=== PATIENT | female | born 1945 | race Two or more races ===

== ENCOUNTER → 2016-05-09 | Outpatient (CLI) | payer MEDICARE, OTHER ==
--- NOTE | 2016-05-10 02:17 | HKNOTE ---
DATE OF SERVICE: 05/09/2016 Patient continues to complain of pain in her right knee. The cortisone injections into her right kn ee have not given her any relief. Patient comes in with her , indicating that she wishes to proceed with a right knee replaceme nt. The surgery and some of the major possible complications were discussed with the two of them. The patient was given my manual titled "Arthritis of the Knee Joint" which contains information conc erning the various alternatives of treatment. It includes various forms of conservative treatment, i ncluding the use of nonsteroidal anti-inflammatory medications and their dangers. Various surgical a lternatives are discussed. The technique of total knee replacement is discussed in detail, including possible complications. Included also is a section on the possible complications of blood transfusi on, a section on postoperative precautions, and an exercise program to follow at home after total kn ee replacement. The long-term care of a total knee replacement implant is also covered in detail. Th e patient was instructed to read this manual in its entirety since it is, in and of itself, a form o f informed consent. After reading this manual, the patient will make a list of further questions shai t may not have been covered adequately. The patient was further advised that this manual, although e xhaustive in nature, is only intended to supplement and complement a one-on-one discussion with me. The patient will see Dr. Payne for medical evaluation and clearance, and my hair or beauty salon assistant will sc hedule her surgery in the near future. Dictated By: PREET HUDDLESTON/KASSANDRA Conf#: [id number] DID#: [id number]
== END | disposition home or self-care (01) ==
LOC: HKI 13:50
DX: M25.561 Pain in right knee (principal)
CPT/HCPCS: G0463

== ENCOUNTER → 2016-05-29 | Outpatient (CLI) | payer MEDICARE, OTHER ==
[~2016-05-29] MED LIST: CARV12.579 PO; CHOL20002 PO; CITA20SO PO; EZET10TA3 PO; GABA100C14 PO; LEVO25TA59 PO; LIDOCAINE PATCH; METF-405 PO; MONT10TA21 PO; MONT10TA24 PO; RIVA20TA PO; SPIR50TA PO; TRAM50TA2 PO; VIMOVO DR
--- NOTE | 2016-05-29 17:58 | HKNOTE ---
DATE OF SERVICE: 05/29/2016 The patient had preoperative evaluation. She is scheduled to have right total knee replacement on 0 05/30/2016, has been cleared for surgery by Dr. Saqib Rosenbaum. Numerous questions were asked and answ ered. The patient really did not have too many questions since her has already had 2 knee r eplacements. She has not given any blood for autotransfusion. She understands the risks associated with using hospital blood. She is agreeable to using hospital blood if needed. Dictated By: PREET HUDDLESTON/KASSANDRA Conf#: [id number] DID#: [id number]
== END | disposition home or self-care (01) ==
LOC: HKI 13:19
DX: Z01.818 Encounter for other preprocedural examination (principal)
CPT/HCPCS: G0463

== ENCOUNTER 2016-05-30 05:46 | Inpatient (IN) | payer MEDICARE, OTHER ==
[2016-05-29 11:04] VITALS: BMI 31.7
[2016-05-30] VITALS (52 sets, daily range): BP systolic 64–145; BP diastolic 45–91; PULSE 60–100; RESP 12–30; Ht 162.6 cm; Wt 98.3 kg
[~2016-05-30] VITALS: Ht 162.6 cm; Wt 98.3 kg
[2016-05-30] MEDS ORDERED: SOD CHLORIDE 0.9% IRR SCH ×2 (06:00)
[2016-05-30] MEDS ORDERED: ONDANSETRON 4 MG INJ IV ONE (06:00)
[2016-05-30] MEDS ORDERED: DEXAMETHASONE 4 MG/ML 1 ML INJ IV ONE (06:00)
[2016-05-30] MEDS ORDERED: ACETAMINOPHEN 1000MG/100ML IV 100 ML IVPB ONE (06:00)
[2016-05-30] MEDS ORDERED: CELECOXIB 200 MG CAP PO ONE (06:00)
[2016-05-30] MEDS: KNEE PAIN COCKTAIL VANCO INJ SCH ×12 (06:00→08:46)
[2016-05-30] MEDS ORDERED: LACTATED RINGER'S 1,000 ML IV* SCH (06:00)
[2016-05-30] MEDS ORDERED: TRANEXAMIC ACID IRR SCH ×2 (06:00)
[2016-05-30] MEDS ORDERED: VANCOMYCIN 1 GM (PMX) 250 ML IVPB ONE (06:00)
[2016-05-30] MEDS ORDERED: SOD CHLORIDE 0.9% IVPB ONE (06:00)
[2016-05-30] MEDS ORDERED: oxyCODONE (CR) 10 MG TAB [oxyCONTIN] PO ONE (06:00)
[2016-05-30] MEDS ORDERED: LANSOPRAZOLE 30 MG CAP PO ONE (06:00)
[2016-05-30] MEDS ORDERED: TRANEXAMIC ACID IVPB ONE (06:00)
[2016-05-30] MEDS ORDERED: MIDAZOLAM 1 MG/ML 2 ML INJ ONE ×2 (06:09→09:24)
[2016-05-30] MEDS ORDERED: ROCURONIUM 50 MG INJ ONE (06:09)
[2016-05-30] MEDS ORDERED: GLYCOPYRROLATE 0.4 MG INJ ONE (06:09)
[2016-05-30] MEDS ORDERED: LIDOCAINE 2% (SDV) 5 ML INJ ONE (06:09)
[2016-05-30] MEDS ORDERED: PROPOFOL 20 ML ONE (06:09)
[2016-05-30] MEDS ORDERED: FENTAnyl 50 MCG/ML VIAL ONE (06:09)
[2016-05-30] MEDS ORDERED: NEOSTIGMINE 3 MG/3 ML SYRINGE ONE (06:09)
[2016-05-30] MEDS ORDERED: LIDOCAINE 2%/EPI 30 ML INJ ONE (06:10)
[2016-05-30] MEDS ORDERED: DEXAMETHASONE 4 MG/ML 1 ML INJ ONE (06:10)
[2016-05-30] MEDS ORDERED: ONDANSETRON 4 MG INJ ONE (06:11)
[2016-05-30] MEDS ORDERED: TRAM50TA2 PO (06:16)
[2016-05-30] MEDS ORDERED: CITA20SO PO (06:16)
[2016-05-30] MEDS ORDERED: RIVA20TA PO (06:16)
[2016-05-30] MEDS ORDERED: MONT10TA24 PO (06:16)
[2016-05-30] MEDS ORDERED: METF-405 PO (06:16)
[2016-05-30] MEDS ORDERED: CHOL20002 PO (06:16)
[2016-05-30] MEDS ORDERED: LIDOCAINE PATCH (06:16)
[2016-05-30] MEDS ORDERED: EZET10TA3 PO (06:16)
[2016-05-30] MEDS ORDERED: SPIR50TA PO (06:16)
[2016-05-30] MEDS ORDERED: GABA100C14 PO (06:16)
[2016-05-30] MEDS ORDERED: VIMOVO DR (06:16)
[2016-05-30] MEDS ORDERED: MONT10TA21 PO (06:16)
[2016-05-30] MEDS ORDERED: CARV12.579 PO (06:16)
[2016-05-30] MEDS ORDERED: LEVO25TA59 PO (06:16)
[2016-05-30] MEDS ORDERED: MIDAZOLAM 1 MG/ML 2 ML INJ IV PRN (06:30)
[2016-05-30] MEDS ORDERED: HYDROmorphONE (0.2 MG/ML) 10ML SYG IV PRN ×3 (06:30)
[2016-05-30] MEDS ORDERED: EPHEDrine SULFATE 50 MG/5 ML SYG IV PRN (06:30)
[2016-05-30] MEDS ORDERED: ONDANSETRON 4 MG INJ IV PRN (06:30)
[2016-05-30] MEDS ORDERED: OXYCODONE/ACETAMINOPHEN (5/325) TAB PO PRN ×2 (06:30)
[2016-05-30] MEDS ORDERED: LABETALOL HCL 20MG INJ IV PRN (06:30)
[2016-05-30] MEDS ORDERED: ATROPINE 1 MG/10 ML SYRINGE IV PRN (06:30)
[2016-05-30] MEDS ORDERED: hydrALAzine 20 MG INJ IV PRN (06:30)
[2016-05-30] MEDS ORDERED: morphine (1 MG/ML) 10ML SYRINGE IV PRN ×3 (06:30)
[2016-05-30] MEDS ORDERED: MEPERIDINE 25 MG INJ IV PRN (06:30)
[2016-05-30] MEDS ORDERED: FENTAnyl 50 MCG/ML VIAL IV PRN ×2 (06:30)
[2016-05-30] MEDS ORDERED: DIPHENHYDRAMINE 50 MG INJ IV PRN (06:30)
[2016-05-30] MEDS ORDERED: ROPIVACAINE 0.2% 100 ML ONE (06:50)
[2016-05-30] MEDS ORDERED: VANCOMYCIN 1 GM INJ ONE (06:50)
[2016-05-30] MEDS ORDERED: POLYMYXIN B 500000 UNIT INJ ONE (06:50)
[2016-05-30] MEDS ORDERED: BUPIVACAINE 0.25%/EPI (SDV) 30 ML INJ ONE (06:50)
[2016-05-30] MEDS ORDERED: TOBRAMYCIN 1.2 GM POWDER ONE ×2 (06:50→10:30)
[2016-05-30] MEDS ORDERED: METHYLENE BLUE 10 MG/ML VIAL ONE (06:50)
--- NOTE | 2016-05-30 06:52 | HPN ---
Date/Time of Note Date/Time of Note DATE: 05/30/16 TIME: 06:51 Interval H&P Admission Note Pt. seen H&P reviewed: No system changes TABBY EARLY PA-C May 30, 2016 06:51
[2016-05-30] MEDS ORDERED: SUCCINYLCHOLINE CHLORIDE 100 MG/5 ML SYG IV ONE (07:00)
[2016-05-30] MEDS ORDERED: BACITRACIN 50000 UNITS INJ IRR ONE (08:46)
[2016-05-30] MEDS ORDERED: ROPIVACAINE 0.2% 100ML BAG INJ ONE (08:46)
[2016-05-30] MEDS ORDERED: FUROSEMIDE 20 MG INJ ONE (09:27)
[2016-05-30] MEDS ORDERED: DEXTROSE 5%-LR 1,000 ML IV SCH (11:38)
[2016-05-30] MEDS ORDERED: HYDROmorphONE 0.2 MG/ML PCA IV PRN (12:00)
[2016-05-30] MEDS ORDERED: NALOXONE (0.4 MG/ML) INJ IV PRN (12:00)
[2016-05-30] MEDS ORDERED: DOCUSATE SODIUM 100 MG CAP PO ONE (12:00)
[2016-05-30] MEDS ORDERED: MAGNESIUM HYDROXIDE 30ML CUP PO PRN (12:00)
[2016-05-30] MEDS ORDERED: BISACODYL 10 MG SUPP PR PRN (12:00)
[2016-05-30] MEDS ORDERED: NA PHOSPHATE/BIPHOS 133 ML ENEMA PR PRN (12:00)
[2016-05-30] MEDS ORDERED: BETHANECHOL 25 MG TAB PO PRN (12:00)
[2016-05-30] MEDS ORDERED: DIPHENHYDRAMINE 50 MG INJ IM PRN (12:00)
[2016-05-30] MEDS ORDERED: MEPERIDINE 10 MG/ML 30 ML PCA IV PRN (12:00)
[2016-05-30] MEDS ORDERED: SENNA/DOCUSATE NA (8.6MG/50MG) TAB PO PRN (12:00)
[2016-05-30] MEDS ORDERED: ASPIRIN (EC) 325 MG TAB PO ONE (12:00)
[2016-05-30] MEDS ORDERED: COUMADIN NOTE XX SCH (12:00)
[2016-05-30] MEDS ORDERED: ZOLPIDEM 5 MG TAB PO PRN (12:00)
--- NOTE | 2016-05-30 12:28 | RADRPT ---
PROCEDURE: XR right knee. CLINICAL INDICATION: Knee pain. TECHNIQUE: AP and lateral views are available for review. COMPARISON: 11/15/2015 FINDINGS: There is a postoperative constrained total knee replacement. There is no evidence of loosening of th e prosthesis. The osseous structures are normal in mineralization, architecture and alignment No acu te fracture or dislocation is seen.No osseous lesions are identified. There are postoperative soft tissue changes. [address] . IMPRESSION: Unremarkable postoperative constrained total knee replacement. Postoperative soft tissue changes RPTAT: HGDB .Pepe Hanks MD, MD Date Time Electronically viewed and signed by .Pepe Hanks MD, on 05/30/2016 12:27 .B/
[2016-05-30] MEDS: ONDANSETRON 4 MG INJ IV SCH ×2 (12:38→18:27)
[2016-05-30] MEDS: ACETAMINOPHEN 1000MG/100ML IV 100 ML IVPB SCH ×2 (12:38→20:24)
[2016-05-30] MEDS: CEFAZOLIN 1 GM/50 ML (PMX) 50 ML IVPB SCH ×2 (12:39→20:25)
[2016-05-30 12:43] LABS: ADD UMIC YES; URINE BILIRUBIN (Dip) NEGATIVE (NEGATIVE); URINE BLOOD (Dip) TRACE (NEGATIVE); URINE COLOR LT. YELLOW (YELLOW); URINE GLUCOSE (Dip) NEGATIVE (NEGATIVE); URINE KETONES (Dip) NEGATIVE (NEGATIVE); URINE LEUKOCYTE ESTERASE (Dip) NEGATIVE (NEGATIVE); URINE NITRITE (Dip) NEGATIVE (NEGATIVE); URINE TOTAL PROTEIN (Dip) NEGATIVE (NEGATIVE); URINE UROBILINOGEN (Dip) 0.2 E.U./dL (0.1-1.0)
[2016-05-30 13:05] LABS: SQUAMOUS EPITHELIAL CELL,UR OCCASIONAL; URINE RBCS 0-2 /HPF (0)
--- NOTE | 2016-05-30 13:53 | OPR ---
DATE OF OPERATION: 05/30/2016 PREOPERATIVE DIAGNOSIS: Exceedingly severe degenerative osteoarthritis of the right knee. POSTOPERATIVE DIAGNOSIS: Exceedingly severe degenerative osteoarthritis of the right knee. OPERATION PERFORMED: Total knee replacement (arthroplasty of the knee, condylar plateau medial and lateral compartments with patella resurfacing, CPT 19042). SURGEON: Sandro Gooden MD BUSINESS EDUCATION PROFESSOR: ARVIN Plata ANESTHESIOLOGIST: Obie Johnson MD FINDINGS AT SURGERY: The patient was found to have exceedingly severe arthritis affecting all 3 com partments of the knee. There were huge osteophytes around the entire periphery of the distal femur and also the medial side of the proximal tibia. The most severe arthritis was in the medial compart ment. The patient's bone was remarkably hard for a patient of her age. Intraoperative photographs were taken to have a record of the exceedingly severe arthritis. JUSTIFICATION FOR SURGERY: The knee was found to have end-stage osteoarthritis. The patient is a v sandi active 70-year-old whose lifestyle is markedly affected by the arthritic knee. An extensive cou rse of conservative care has been tried prior to embarking on the knee replacement operation. There can be no reasonable expectation that any further conservative treatment will make any improvement to this patient's pain level and lifestyle. The risks and complications of the surgery were discuss ed with the patient at the preoperative visit as well as the risks and possible complications of blo od transfusion using hospital blood. The patient is agreeable to using hospital blood if needed. DESCRIPTION OF PROCEDURE: The patient was given intravenous antibiotics 1 hour prior to surgery. A n epidural anesthetic was initiated in the ICU holding area. The patient was taken to the operating room and given a light general anesthetic. The leg, foot, and ankle were prepared and draped in th e usual sterile fashion. The center of the ankle was marked at the midpoint between the 2 malleoli with a sterile marking pen. A tourniquet around the thigh was inflated to 250 mmHg after the leg conner d been exsanguinated using an Esmarch bandage. The tourniquet was inflated at the initiation of pro cedure for a short period and was then again reinflated at the time of cementing the components part s. The total tourniquet time was 74 minutes. A longitudinal incision was made over the anterior aspect of the knee. The incision extended from t he tibial tubercle to a point just above the patella. The medial capsule was exposed by sharp and b amber dissection, and was incised 1/4 inch medial to the patella. A marking stitch was set on each s meg of the incision at the midpoint of the capsule so as to enable accurate reapproximation at the e nd of the operation. A vastus split was made in the vastus medialis extending from the superior mir e of the patella for approximately 5 cm between the line with the muscle fibers. The ends of the mu scle split at the patella were marked with a marking stitch on each side for later accurate reapprox imation. The patella was reflected laterally and osteophytes around the rim of the patella were rem barry. Osteophytes along the lateral femoral condyle were removed so as to facilitate lateral reflec tion of the patella. Posteromedial osteophytes were removed on the lateral side as well, so as to f ree up the lateral collateral ligament. Medial femoral osteophytes and posteromedial femoral osteop hytes were also removed at this time. This allowed for the knee to be brought into a more normal al ignment. A segment of bone was cut from the articular surface of the patella using a caliper to det ermine the exact thickness to be removed. The remaining thickness of the patella was 16 mm. The kn ee was flexed, and the patella was displaced laterally without eversion. Osteophytes in the femoral notch were removed. The remnants of the medial and lateral menisci were excised and the cruciate l igaments were excised. The medial collateral ligament was elevated as an osteo-periosteal flap from the proximal tibia. The distal end of the medial collateral ligament remained attached to the tibi a throughout the operation. The tibia was retracted forward with Hohmann retractor, inserted vending supervisor ior to the midpoint of the proximal tibia. The tibial jig was set in place in such a way as to alig n longitudinally with the anterior tibial spine, with the junction of the middle and medial 2/3 of t he patella tendon, and with the posterior intercondylar eminence of the tibia. An AP and lateral x- ray was obtained with the alignment jig in place. This showed that the alignment was satisfactory a fter some slight adjustments were made. The posterior slope of the tibia was set at 6 degrees. The tibial cutting block was attached to the proximal tibia with 2 Steinmann pins. An external alignme nt jose l was placed on the cutting block to confirm the alignment of the cutting block. An Harry Wing feeler gauge was now placed on the superior aspect of the cutting block to further confirm the post erior slope of the tibia and the depth of the cut to be made. An oscillating saw was used to remove an appropriate amount of bone from the proximal tibia with the healthy side being used to measure t he cutting depth. The lateral femoral condyle of the distal femur was measured to determine the mayank ropriate size for the femoral component. The anterior condyle of the femur was partially removed wi th a rongeur. A medium-sized cutting block was attached to the distal femur with 2 Steinmann pins t hrough the pin holes in the block. The external alignment jig of this cutting block was lined up wi th the anterior surface of the femur and a central intercondylar hole for the intramedullary jose l was drilled through the hole in the alignment block. The block was removed. A long Waterpik nozzle wa s used to flush fat from the intramedullary canal. The appropriately sized cutting block was now at tached to the femur by means of an intramedullary jose l. The linking guide was inserted into the slot in the base of the femoral cutting block with the knee set at 90 degrees of flexion and with the li nking guide set flush with the proximal tibial cut in order to set the appropriate rotational alignm ent on the femoral cutting block. Ligament balance was checked at this point and was found to be ve ry satisfactory. Once the rotational alignment had been determined, and the ligaments found to be b alanced, the femoral cutting block was secured to the distal femur with 2 Steinmann pins. The anter ior and posterior cuts of the distal femur were made off the femoral cutting block. The cutting blo ck was removed and a spacer block was used to measure the flexion gap which was found to be 15 mm. The same spacer block size without the femoral element was used with the leg in extension to determi ne the amount of distal femur to be removed in the transverse plane. A 5-degree distal cutting bloc k was now set on the femoral intramedullary jose l, and the jose l was inserted into the intramedullary ca nal. The appropriate amount of bone to be removed was determined. The femoral cutting block was pi nned to the anterior surface of the femur with 2 Steinmann pins. The appropriate amount of bone was resected off the distal femur to give an extension gap equal to the thickness of the flexion gap. The cut needed to be repeated after initial cut in order to produce an extension gap the same size a s the flexion gap. By using the appropriate cutting blocks, the rest of the femoral cuts were made. The femoral trial component was installed and was found to fit perfectly. The femoral trial component was removed. T he proximal tibia was sized, and the appropriate tibial tray selected. The central fixation hole in the tibia was made using the tibial tray template and the appropriate instruments. The femoral and tibial trials and the trial tibial insert were installed, and the patella was prepared to accept th e 32 mm dome component. The trial components were all removed. The tourniquet was inflated. Soft tissues around the knee, especially the posterior capsule, were injected with a mixture of Naropin, Toradol, morphine, and clonidine. The cut surfaces of the bones were cleaned with pulsatile Water J et lavage and thoroughly dried. Sclerotic bone surfaces were drilled with a 1/8-inch drill. The ti bial trial component was installed with methyl methacrylate cement followed by the femoral component and finally the patellar component. Cement was used on all 3 components. The cement was finger pa cked into the cut surfaces of the bone and pressurized with a rubber dam in order to get good interd igitation of the cement into the bone. A lateral x-ray of the knee was obtained while the cement wa s hardening with the anticipated appropriate spacer trial in place. The 15 mm trial insert was used . The knee was found to have hyperextension. The 17.5 mm trial implant was therefore inserted. It fit perfectly and the knee traced very well and the ligaments were stable. Note that with the 15 m m insert in place, the ligaments were lax. Once the cement was hard, all extraneous cement was cody raf. The cut edges of the medial capsule were held together at the midpoint with a towel clip, and the knee was put through a full range of motion. The patella was found to track satisfactorily. A lateral release was not required. At this point, the patella was found to track very well in the pa tellar groove of the femoral component. The knee was frequently irrigated with normal saline containing antibiotics with pulsatile lavage th roughout the entire operation as a prophylactic measure against infection. Once the cement was hard , the tourniquet was released. Bleeding points were cauterized. The total tourniquet time was 74 m inutes. The patient's vital signs remained stable throughout the operation. The permanent rotating bearing was installed. Superficial and deep Hemovac drains were set in place . The wound was closed using interrupted Vicryl on the capsule with FiberWire used at strategic poi nts such as the attachment of the distal ends of the vastus medialis at the split, and the tibial te ndon was also attached to the osteo-periosteal flap with FiberWire. The rest of the medial capsule was closed with interrupted Vicryl. A subcuticular stitch was inserted and parul were used on the skin. The usual sterile dressings were applied. A Brendan-Nettles compression dressing was applied a fter a sterile cooling pad had been set in place against the deep tissues by sterile cast padding. The patient's condition at the end of the procedure was satisfactory. Vital signs remained stable t hroughout the operation. The patient returned to the recovery room in stable condition. X-rays wer e obtained in the recovery room. Calf pumps were applied to both legs in the operating room. There were no problems or complications as far as we know. The sponge and instrument counts were correct . COMPONENT INFORMATION: KNEE IMPLANT TYPE: LCS. FEMORAL COMPONENT SIZE: Standard plus. TIBIAL COMPONENT SIZE: 3. PATELLAR COMPONENT SIZE: 32 mm dome. TIBIAL INSERT: 17.5 mm. IMPLANT DISPLAY DEPARTMENT MANAGER: [employer] [facility] [place], [place]. TOTAL TOURNIQUET TIME: 34 minutes. TOTAL BLOOD LOSS: Possibly around 150 mL. Dictated By: SANDRO HUDDLESTON/KASSANDRA Conf#: [id number] DID#: [id number]
--- NOTE | 2016-05-30 13:53 | CONS ---
DATE OF ADMISSION: 05/30/2016 DATE OF CONSULTATION: 05/30/2016 TYPE OF CONSULTATION: Medical. Thank you, Dr. Gooden, for asking me to participate in medical management of this patient. REASON FOR CONSULTATION: To manage the patient's atrial fibrillation, hypertension, hypothyroidism and diabetes mellitus. HISTORY OF PRESENT ILLNESS: This 70-year-old female is now in the postanesthesia recovery room afte r undergoing a right total knee replacement. The patient has been having increasing pain in both kn ees. The worst pain was in the right knee and she decided to undergo a right total knee replacement . She had failed the routine medical therapy. She is awake and alert in the recovery room. She de nies any chest pain, shortness of breath, cough. PAST MEDICAL HISTORY: Remarkable for the following: Atrial fibrillation, type 2 diabetes mellitus, hypertension, hypothyroidism, osteoarthritis, hyperlipidemia. CURRENT MEDICATIONS: Include the followin. Xarelto 20 mg a day, which was stopped 5 days before surgery. 2. Carvedilol 12.5 mg twice a day. 3. Zetia 10 mg a day. 4. Spironolactone 50 mg a day. 5. Citalopram 10 mg a day. 6. Gabapentin 100 mg 3 times a day. 7. Tramadol 50 mg a day p.r.n. pain. 8. Montelukast 10 mg a day. 9. Levothyroxine 25 mcg a day. 10. Metformin 500 mg a day. 11. Vitamin D 2000 units a day. SOCIAL HISTORY: The patient is . ALLERGIES: SHE HAS NO KNOWN DRUG ALLERGIES. PAST SURGICAL HISTORY: Cholecystectomy, appendectomy. PHYSICAL EXAMINATION: GENERAL: Reveals a well-developed female in no apparent distress. VITAL SIGNS: Pulse of 70, blood pressure 102/49, O2 saturation 96% on room air. HEENT: Head normocephalic. Eyes: Extraocular muscles intact. Nose and mouth are normal. NECK: Supple. No neck vein distention. LUNGS: Clear to auscultation. HEART: Irregularly irregular rhythm. No murmurs, gallops or rubs. ABDOMEN: Soft, nontender. EXTREMITIES: No peripheral edema. She does have a large bandage on her right knee with a drain. IMPRESSION: This patient is stable after surgery today. The patient does have a history of hyperte nsion. Her blood pressure is controlled at this time. She does have atrial fibrillation, the rate is controlled at this time. I will follow the patient and manage her medical problems. PLAN: 1. Resume some routine medications. 2. Check labs in the morning. 3. Postop total knee replacement protocol. 4. I will discuss anticoagulation management with Dr. Gooden. I will follow the patient along with you. Dictated By: JJ GRAY MD, ND/KASSANDRA Conf#: [id number] DID#: [id number]
[2016-05-30] MEDS ORDERED: TRANEXAMIC ACID 980 MG in SOD CHLORIDE 0.9% 100 ML IVPB ONE ×2 (15:00→18:00)
[2016-05-30] MEDS ORDERED: BACITRACIN 50000 UNITS INJ ONE (15:02)
--- NOTE | 2016-05-30 15:16 | RADRPT ---
PROCEDURE: knee x-ray CLINICAL INDICATION: RT KNEE REPLACEMENT TECHNIQUE: Single cross-table lateral viewof the right knee were obtained. COMPARISON: None FINDINGS: Surgical instruments overlie the anterior knee joint with femoral and tibial components in place. N o fracture or evidence of hardware failure. IMPRESSION: 1. Intraoperative single lateral view of the right knee. Intact visualized the prosthetic componen ts. RPTAT:AAJJ Jaskaran Vigil Physician Date Time Electronically viewed and signed by Physician Maria Dolores on 05/30/2016 15:16 VASU/
[2016-05-30] MEDS ORDERED: GLUCOSE GEL 15 GRAM TUBE PO PRN ×2 (16:30)
[2016-05-30] MEDS ORDERED: GLUCAGON 1 MG INJ IM PRN (16:30)
[2016-05-30] MEDS ORDERED: DEXTROSE 50% 50 ML SYRINGE IV PRN ×2 (16:30)
[2016-05-30] MEDS ORDERED: GLUCOSE GEL 15 GRAM TUBE BUCCAL PRN (16:30)
[2016-05-30] MEDS: SOD CHLORIDE 0.45% 1,000 ML IV SCH (17:40)
[2016-05-30] MEDS: INSULIN ASPART [NOVOLOG] 3 ML PEN SC SCH ×2 (18:38→20:25)
[2016-05-30] MEDS: GABAPENTIN 100 MG CAP PO SCH (20:25)
[2016-05-30] MEDS: MONTELUKAST 10 MG TAB PO SCH (20:25)
[2016-05-30] MEDS ORDERED: MONTELUKAST 10 MG TAB PO SCH (21:00)
[2016-05-31 00:05] VITALS: BP 123/58; PULSE 82; RESP 18
[2016-05-31] MEDS: ACCUCHECK XX SCH (01:13)
[2016-05-31] MEDS: ACETAMINOPHEN 1000MG/100ML IV 100 ML IVPB SCH ×3 (03:50→20:54)
[2016-05-31] MEDS: CEFAZOLIN 1 GM/50 ML (PMX) 50 ML IVPB SCH (03:50)
[2016-05-31 05:21] VITALS: BP 138/63; PULSE 70; RESP 19
[2016-05-31] MEDS: SOD CHLORIDE 0.45% 1,000 ML IV SCH ×2 (05:30→08:38)
[2016-05-31 05:36] LABS: BASOPHILS % 0.3 % (0.0-2.0); HEMATOCRIT 35.5 % (37.0-47.0); HEMOGLOBIN 12.1 g/dl (12.0-16.0); LYMPHOCYTES # 1.2 10^3/ul (0.8-2.9); LYMPHOCYTES % 12.2 % (15.0-51.0); MEAN CORPUSCULAR HEMOGLOBIN 32.2 pg (29.0-33.0); MEAN CORPUSCULAR HGB CONC 34.1 g/dl (32.0-37.0); MEAN CORPUSCULAR VOLUME 94.4 fl (82.0-101.0); MEAN PLATELET VOLUME 7.7 fl (7.4-10.4); MONOCYTE # 0.9 10^3/ul (0.3-0.9); MONOCYTES % 8.5 % (0.0-11.0); PLATELET COUNT 207 10^3/UL (140-440); RED BLOOD COUNT 3.76 10^6/ul (4.20-5.40); RED CELL DISTRIBUTION WIDTH 13.6 % (11.5-14.5); UNCORRECTED WBC 10.2 10^3/ul (4.8-10.8); WHITE BLOOD COUNT 10.2 10^3/ul (4.8-10.8)
[2016-05-31 05:42] LABS: CONDITION 1
[2016-05-31] MEDS ORDERED: KETOROLAC 30 MG INJ INJ PRN (06:00)
[2016-05-31] MEDS ORDERED: BUPIVACAINE 0.25%/EPI (SDV) 30 ML INJ INJ PRN (06:00)
[2016-05-31 06:17] LABS: ALBUMIN 3.1 g/dl (3.3-4.9); POTASSIUM 3.9 mmol/L (3.5-5.1)
[2016-05-31 06:20] LABS: ALBUMIN/GLOBULIN RATIO 1.29; BILIRUBIN,INDIRECT 0.5 mg/dl (0-1.1); BILIRUBIN,TOTAL 0.5 mg/dl (0.2-1.3); CALCIUM 8.6 mg/dl (8.4-10.2); CREATININE 0.84 mg/dl (0.44-1.00); TOTAL PROTEIN 5.5 g/dl (6.1-8.1)
[2016-05-31] MEDS: DEXAMETHASONE 4 MG/ML 1 ML INJ IV SCH (06:20)
[2016-05-31] MEDS: ONDANSETRON 4 MG INJ IV SCH ×2 (06:20)
[2016-05-31] MEDS: LEVOTHYROXINE 25 MCG TAB PO SCH (06:21)
[2016-05-31 07:38] VITALS: BP 136/64; RESP 16
[2016-05-31] MEDS: INSULIN ASPART [NOVOLOG] 3 ML PEN SC SCH ×4 (07:50→21:00)
--- NOTE | 2016-05-31 08:07 | PN ---
Date/Time of Note Date/Time of Note DATE: 05/31/16 TIME: 08:05 Assessment/Plan VTE Prophylaxis VTE Prophylaxis Intervention: ambulation, SCD's, other (Aspirin 325 mg twice daily) Lines/Catheters IV Catheter Type (from Nrs): Peripheral IV Farah in Place (from Nrsg): Yes Assessment/Plan Assessment/Plan -Hemovac Removed Today -Pain Cocktail Given -Pain Meds as needed -Dress change performed today -OOB with PT -ASA/SCDs for DVT Prophylaxis -Continue monitoring with Internal Medicine -Patient Stable Subjective 24 Hr Interval Summary 70-year-old female postop day 1 after right total knee replacement. Patient has no pain complaints. Patient was up and out of bed yesterday. Was able to ambulate, with assistance using front wheeled walker, around the hallways twice per patient account. Denies any chest pain, shortness of breath or difficulty breathing. No calf pain. Patient doing well. Constitutional: ambulates, no complaints Exam/Review of Systems Vital Signs Vitals Vital Signs Date Time Temp Pulse Resp B/P Pulse Ox O2 Delivery O2 Flow Rate FiO2 05/31/16 07:38 97.8 62 16 136/64 99 05/31/16 05:21 Nasal Cannula Intake and Output 05/30/16 05/30/16 05/31/16 15:00 23:00 07:00 Intake Total 1617.8 ml 450 ml 1550 ml Output Total 950 ml 800 ml 1200 ml Balance 667.8 ml -350 ml 350 ml Exam Free Text/Dictation -Hemovac: Intact with 400cc output -Pain Cocktail Drains: Intact -Incision: Clean, Dry and Intact without any redness or drainage -5/5 Tibialis Anterior, EHL Gastrocnemius/Soleus and Peroneals -Normal Sensation -Palpable DP/PT, Capillary Refill <2 secs -No Distal Edema -Negative Maria Elena Sign/No calf pain -Toes Freely Movable Results Result Diagram: 05/31/16 0430 05/31/16 043 TABBY EARLY PA-C May 31, 2016 08:07
--- NOTE | 2016-05-31 08:11 | PDOCDIS ---
Discharge Instructions DIAGNOSIS Discharge Diagnosis: s/p right total knee replacement CONDITION Patient Condition: Stable HOME CARE INSTRUCTIONS: Diet Instructions: RegularSpecial Diet: REGULAR ACTIVITY: Activity Restrictions: Slowly Increase Activity Rest between Activity Avoid heavy lifting Do not Drive Do not operate Machinery Avoid Heavy Housework Keep Limb Elevated Weight Bearing (As tolerated) Bathing Restrictions: Shower (usign tegaderm with pad given to you at discharge. Apply before you shower and remove after you shower once the leg is completely dry. Do this everyday until parul are removed which will be around 10 days post op.) FOLLOW UP/APPOINTMENTS Appointments Follow-up on June 20, 2016 at 2:15 PM in outpatient clinic. Home health to be provided by [facility], phone number [phone] He may follow-up sooner in clinic, if there is any complications after discharge from hospital. Continue pain medications as tolerated. Continue DVT prophylaxis with aspirin 325 mg twice daily TABBY EARLY PA-C May 31, 2016 08:11
[2016-05-31] MEDS: FERROUS FUMARATE (SR) TAB PO SCH ×2 (08:36→20:54)
[2016-05-31] MEDS: EZETIMIBE 10 MG TAB PO SCH (08:37)
[2016-05-31] MEDS: CELECOXIB 200 MG CAP PO SCH ×2 (08:37→20:54)
[2016-05-31] MEDS: CHOLECALCIFEROL 1,000 UNIT TAB PO SCH (08:37)
[2016-05-31] MEDS: CITALOPRAM 20 MG TAB PO SCH (08:37)
[2016-05-31] MEDS: GABAPENTIN 100 MG CAP PO SCH ×3 (08:38→20:54)
[2016-05-31] MEDS: DOCUSATE SODIUM 100 MG CAP PO SCH ×2 (08:41→20:54)
[2016-05-31] MEDS ORDERED: ASPIRIN (EC) 325 MG TAB PO SCH (09:00)
[2016-05-31] MEDS ORDERED: oxyCODONE 5 MG TAB PO PRN ×3 (09:00)
[2016-05-31 09:13] LABS: ADD UMIC YES; URINE BILIRUBIN (Dip) NEGATIVE (NEGATIVE); URINE BLOOD (Dip) 2+ (NEGATIVE); URINE COLOR LT. YELLOW (YELLOW); URINE GLUCOSE (Dip) NEGATIVE (NEGATIVE); URINE KETONES (Dip) NEGATIVE (NEGATIVE); URINE LEUKOCYTE ESTERASE (Dip) NEGATIVE (NEGATIVE); URINE NITRITE (Dip) NEGATIVE (NEGATIVE); URINE TOTAL PROTEIN (Dip) NEGATIVE (NEGATIVE); URINE UROBILINOGEN (Dip) 0.2 E.U./dL (0.1-1.0)
[2016-05-31 09:36] LABS: BACTERIA,URINE RARE
--- NOTE | 2016-05-31 10:11 | CONS ---
Date/Time of Note Date/Time of Note DATE: 05/31/16 TIME: 10:07 Assessment/Plan Assessment/Plan Chief Complaint/Hosp Course 1. she is 1 day post op a R TKR . She is doing well . 2. continue current meds and restart spironolactone Problems: Consultation Date/Type/Reason Admit Date/Time May 30, 2016 at 05:46 Initial Consult Date 24 HR Interval Summary Free Text/Dictation She is feeling well . she has been up walking . Constitutional: improved, no complaints Exam/Review of Systems Vital Signs Vitals Vital Signs Date Time Temp Pulse Resp B/P Pulse Ox O2 Delivery O2 Flow Rate FiO2 05/31/16 07:38 97.8 62 16 136/64 99 05/31/16 05:21 Nasal Cannula Intake and Output 05/30/16 05/30/16 05/31/16 15:00 23:00 07:00 Intake Total 1617.8 ml 450 ml 1550 ml Output Total 950 ml 800 ml 1200 ml Balance 667.8 ml -350 ml 350 ml Exam Constitutional: alert, oriented, well developed Psych: nl mood/affect, no complaints Respiratory: clear to auscultation, normal air movement Cardiovascular: irregular rhythm Gastrointestinal: soft Musculoskeletal: nl extremities to inspection Results Result Diagram: 05/31/16 0430 05/31/16 0430 Results 24 hrs Laboratory Tests Test 05/30/16 12:00 05/30/16 13:32 05/30/16 17:10 05/30/16 20:19 Urine Bilirubin NEGATIVE Urine Clarity CLEAR Urine Color LT. YELLOW Urine Glucose NEGATIVE Urine Hemoglobin TRACE Urine Ketones NEGATIVE Urine Leukocyte Esterase NEGATIVE Urine Microscopic RBC 0-2 Urine Microscopic WBC NONE SEEN Urine Nitrite NEGATIVE Urine Specific [place] <=1.005 L Urine Squamous Epithelial Cells OCCASIONAL Urine Total Protein NEGATIVE Urine Urobilinogen 0.2 E.U./dL Urine pH 5.5 Bedside Glucose 147 142 162 Test 05/31/16 04:30 05/31/16 05:00 05/31/16 08:09 Alanine Aminotransferase (ALT/SGPT) 36 Albumin 3.1 L Albumin/Globulin Ratio 1.29 Alkaline Phosphatase 65 Anion Gap 12 Aspartate Amino Transf (AST/SGOT) 26 Basophils # 0.0 Basophils % 0.3 Blood Urea Nitrogen 19 Calcium Level 8.6 Carbon Dioxide Level 28 Chloride Level 102 Creatinine 0.84 Direct Bilirubin 0.00 Eosinophils # 0.0 Eosinophils % 0.0 Globulin 2.40 Glucose Level 101 Hematocrit 35.5 L Hemoglobin 12.1 Indirect Bilirubin 0.5 Lymphocytes # 1.2 Lymphocytes % 12.2 L Mean Corpuscular Hemoglobin 32.2 Mean Corpuscular Hemoglobin Concent 34.1 Mean Corpuscular Volume 94.4 Mean Platelet Volume 7.7 Monocytes # 0.9 Monocytes % 8.5 Neutrophils # 8.0 H Neutrophils % 79.0 H Nucleated Red Blood Cells # 0.0 Nucleated Red Blood Cells % 0.0 Platelet Count 207 Potassium Level 3.9 Red Blood Count 3.76 L Red Cell Distribution Width 13.6 Sodium Level 138 Total Bilirubin 0.5 Total Protein 5.5 L White Blood Count 10.2 Urine Bacteria RARE Urine Bilirubin NEGATIVE Urine Clarity CLEAR Urine Color LT. YELLOW Urine Epithelial Cells RARE Urine Glucose NEGATIVE Urine Hemoglobin 2+ H Urine Ketones NEGATIVE Urine Leukocyte Esterase NEGATIVE Urine Microscopic RBC 10-25 Urine Microscopic WBC 0-2 Urine Nitrite NEGATIVE Urine Specific [place] <=1.005 L Urine Total Protein NEGATIVE Urine Urobilinogen 0.2 E.U./dL Urine pH 6.0 Bedside Glucose 99 Medications Medications Current Medications Hydromorphone HCl (Dilaudid [employer]) Q4PCA PRN IV SEVERE PAIN 8-10; Start at 12:00; Stop 05/31/16 at 11:59 Meperidine HCl (Demerol [employer]) Q4PCA PRN IV SEVERE PAIN 8-10; Start 05/30/16 at 12:00; Stop 05/31/16 at 11:59 Oxycodone HCl (Roxicodone) 20 mg Q3H PRN PO PAIN LEVEL 8-10; Start 05/31/16 at 09:00 Oxycodone HCl (Roxicodone) 10 mg Q3H PRN PO PAIN LEVEL 4-7; Start 05/31/16 at 09:00 Oxycodone HCl 5 mg 5 mg Q3H PRN PO PAIN LEVEL 1-3; Start 05/31/16 at 09:00 Acetaminophen (Ofirmev 1000mg/ 100ml Iv) 100 ml @ 400 mls/hr Q8H IVPB Last administered on 05/31/16t 03:50; Admin Dose 400 MLS/HR; Start 05/30/16 at 12:00 ; Stop 06/01/16 at 04:14 Zolpidem Tartrate (Ambien) 5 mg HS PRN PO INSOMNIA; Start 05/30/16 at 12:00 Miscellaneous Information (Note) NOTE XX ; Start 05/30/16 at 12:00 Aspirin (Ecotrin) 325 mg BID PO Last administered on 05/31/16 08:37; Admin Dose 325 MG; Start 05/31/16 at 09:00 Celecoxib (Celebrex) 200 mg BID PO Last administered on 05/31/16 08:37; Admin Dose 200 MG; Start 05/31/16 at 09:00 Dexamethasone (Decadron) 4 mg DAILY@07 IV Last administered on 05/31/16 06:20 ; Admin Dose 4 MG; Start 05/31/16 at 07:00; Stop 06/03/16 at 06:59 Pantoprazole (Protonix Tab) 40 mg DAILY@06 PO ; Start 06/01/16 at 06:00 Docusate Sodium/ Ferrous Fumarate (Twyla-Sequels) 1 tab BID PO Last administered on 05/31/16 08:36; Admin Dose 1 TAB; Start 05/31/16 at 09:00 Docusate Sodium (Colace) 200 mg BID PO ; Start 05/31/16 at 09:00; Stop 06/03/16 at 08:59 Simethicone (Mylicon) 80 mg TID PRN PO DISTENSION/GAS/BLOATING; Start 05/30/16 at 12:00 Senna/Docusate Sodium (Senokot-S) 2 tab BID PRN PO CONSTIPATION; Start at 12:00 Magnesium Hydroxide (Milk Of Mag) 30 ml HS PRN PO CONSTIPATION; Start 05/30/16 at 12:00 Bisacodyl (Dulcolax Supp) 10 mg DAILY PRN [place] CONSTIPATION; Start 05/30/16 at 12 :00 Sodium Biphosphate/ Sodium Phosphate (Fleet Enema) 133 ml DAILY PRN [place] CONSTIPATION; Start 05/30/16 at 12:00 Diphenhydramine HCl (Benadryl) 25 mg Q4H PRN IM ITCHING OR RASH; Start at 12:00 Ketorolac Tromethamine (Toradol) 30 mg DAILY@06 PRN INJ ADMINSTER BY SURGEON ONLY; Start 05/31/16 at 06:00; Stop 06/04/16 at 05:59 Bupivacaine HCl/ Epinephrine Bitart (Marcaine 0.25%/ Epi (Sdv) 30 ml) 20 ml DAILY@06 PRN INJ ADMINSTER BY SURGEON ONLY; Start 05/31/16 at 06:00; Stop 06/04 at 05:59 Naloxone HCl (Narcan) 0.2 mg Q2M PRN IV DECREASED REPIRATORY RATE; Start at 12:00 Carvedilol (Coreg) 12.5 mg DAILY PO Last administered on 05/31/16 08:37; Admin Dose 12.5 MG; Start 05/31/16 at 09:00 EZETIMIBE (Zetia) 10 mg DAILY PO Last administered on 05/31/16 08:37; Admin Dose 10 MG; Start 05/31/16 at 09:00 Gabapentin (Neurontin) 100 mg TID PO Last administered on 05/31/16 08:38; Admin Dose 100 MG; Start 05/30/16 at 21:00 Montelukast Sodium (Singulair) 10 mg QHS PO Last administered on 05/30/16 20: 25; Admin Dose 10 MG; Start 05/30/16 at 21:00 Cholecalciferol (Vitamin D) 2,000 unit DAILY PO Last administered on 05/31/16 08:37; Admin Dose 2,000 UNIT; Start 05/31/16 at 09:00 Citalopram Hydrobromide (Celexa) 10 mg DAILY PO Last administered on 05/31/16 08:37; Admin Dose 10 MG; Start 05/31/16 at 09:00 Diagnostic Test (Pha) 1 ea 1 ea 02 XX ; Start 05/31/16 at 02:00 Sodium Chloride (1/2 NS) 1,000 ml @ 80 mls/hr [id number] IV Last administered on 05/31/16 08:38; Admin Dose 80 MLS/HR; Start 05/30/16 at 17:00 Miscellaneous Information 1 ea NOTE XX ; Start 05/30/16 at 16:30 Glucose (Glutose) 15 gm Q15M PRN PO DECREASED GLUCOSE; Start 05/30/16 at 16:30 Glucose (Glutose) 22.5 gm Q15M PRN PO DECREASED GLUCOSE; Start 2/16/17 at 16: 30 Dextrose (D50w Syringe) 25 ml Q15M PRN IV DECREASED GLUCOSE; Start 05/30/16 at 16:30 Dextrose (D50w Syringe) 50 ml Q15M PRN IV DECREASED GLUCOSE; Start 05/30/16 at 16:30 Glucagon (Glucagen) 1 mg Q15M PRN IM DECREASED GLUCOSE; Start 05/30/16 at 16:30 Glucose (Glutose) 15 gm Q15M PRN BUCCAL DECREASED GLUCOSE; Start 05/30/16 at 16 :30 JJ GRAY MD May 31, 2016 10:10
[2016-05-31] MEDS: SPIRONOLACTONE 25 MG TAB PO SCH (11:44)
--- NOTE | 2016-05-31 13:10 | RADRPT ---
PROCEDURE: Intraoperative fluoroscopy CLINICAL INDICATION: Right total knee replacement TECHNIQUE: 00:10 seconds of fluoroscopy time was utilized. 3 Images are submitted for interpretatio n. COMPARISON: Plain films from the same day FINDINGS: Successful right knee arthroplasty placement was performed. Alignment is anatomic. 00:10 seconds of fluoroscopy time used. IMPRESSION: Successful right knee arthroplasty placement. 10 seconds of fluoroscopy time used. RPTAT: EE .Yara Davis MD, MD Date Time Electronically viewed and signed by .Yara Davis MD, on 05/31/2016 13:09 .F/
[2016-05-31] MEDS ORDERED: RIVAROXABAN 10 MG TABLET PO ONE (17:30)
[2016-05-31] MEDS ORDERED: RIVAROXABAN 20 MG TABLET PO SCH (17:55)
[2016-05-31 19:32] VITALS: BP 117/54; RESP 19
[2016-05-31] MEDS: MONTELUKAST 10 MG TAB PO SCH (20:54)
[2016-06-01] MEDS: ACCUCHECK XX SCH (02:00)
[2016-06-01] MEDS: ACETAMINOPHEN 1000MG/100ML IV 100 ML IVPB SCH (04:14)
[2016-06-01 05:08] LABS: BASOPHILS % 0.2 % (0.0-2.0); EOSINOPHILS % 0.1 % (0.0-7.0); HEMATOCRIT 34.1 % (37.0-47.0); HEMOGLOBIN 11.6 g/dl (12.0-16.0); LYMPHOCYTES # 2.2 10^3/ul (0.8-2.9); LYMPHOCYTES % 25.4 % (15.0-51.0); MEAN CORPUSCULAR HEMOGLOBIN 32.4 pg (29.0-33.0); MEAN CORPUSCULAR HGB CONC 34.2 g/dl (32.0-37.0); MEAN CORPUSCULAR VOLUME 94.8 fl (82.0-101.0); MEAN PLATELET VOLUME 7.6 fl (7.4-10.4); MONOCYTE # 0.8 10^3/ul (0.3-0.9); MONOCYTES % 9.1 % (0.0-11.0); NEUTROPHIL # 5.6 10^3/ul (1.6-7.5); NEUTROPHILS % 65.2 % (39.0-77.0); PLATELET COUNT 199 10^3/UL (140-440); RED CELL DISTRIBUTION WIDTH 13.8 % (11.5-14.5); UNCORRECTED WBC 8.5 10^3/ul (4.8-10.8); WHITE BLOOD COUNT 8.5 10^3/ul (4.8-10.8)
[2016-06-01 05:35] LABS: CONDITION 1
[2016-06-01] MEDS: SOD CHLORIDE 0.45% 1,000 ML IV SCH ×2 (06:30→18:07)
[2016-06-01] MEDS: DEXAMETHASONE 4 MG/ML 1 ML INJ IV SCH (06:41)
[2016-06-01] MEDS: LEVOTHYROXINE 25 MCG TAB PO SCH (06:41)
[2016-06-01] MEDS: PANTOPRAZOLE (EC) 40 MG TAB PO SCH (06:41)
[2016-06-01 07:44] VITALS: BP 138/59; RESP 18
[2016-06-01] MEDS: INSULIN ASPART [NOVOLOG] 3 ML PEN SC SCH ×4 (07:50→21:00)
[2016-06-01] MEDS: CELECOXIB 200 MG CAP PO SCH ×2 (08:25→21:09)
[2016-06-01] MEDS: EZETIMIBE 10 MG TAB PO SCH (08:26)
[2016-06-01] MEDS: GABAPENTIN 100 MG CAP PO SCH ×3 (08:26→21:09)
[2016-06-01] MEDS: CHOLECALCIFEROL 1,000 UNIT TAB PO SCH (08:26)
[2016-06-01] MEDS: SPIRONOLACTONE 25 MG TAB PO SCH (08:26)
[2016-06-01] MEDS: FERROUS FUMARATE (SR) TAB PO SCH ×2 (08:26→21:09)
[2016-06-01] MEDS: CITALOPRAM 20 MG TAB PO SCH (08:26)
[2016-06-01] MEDS: DOCUSATE SODIUM 100 MG CAP PO SCH ×2 (08:27→21:00)
--- NOTE | 2016-06-01 11:41 | PN ---
Date/Time of Note Date/Time of Note DATE: 06/01/16 TIME: 11:39 Assessment/Plan Lines/Catheters IV Catheter Type (from Nrsg): Saline Lock Farah in Place (from Nrsg): Yes Assessment/Plan Assessment/Plan Stable POD #2, s/p right TKA -pain cocktail given -pain meds as needed -Xarelto/SCDs for DVT prophylaxis -OOB with PT -d/c planning. Will likely go home tomorrow Subjective 24 Hr Interval Summary Doing well. No acute overnight events. Denies significant pain. Progressing well with PT. Would like to go home tomorrow. Exam/Review of Systems Vital Signs Vitals Vital Signs Date Time Temp Pulse Resp B/P Pulse Ox O2 Delivery O2 Flow Rate FiO2 06/02/16 08:27 97.8 82 20 122/64 97 06/02/16 08:21 Room Air Intake and Output 06/01/16 06/01/16 06/02/16 15:00 23:00 07:00 Intake Total 1000 ml 700 ml Output Total 800 ml Balance 200 ml 700 ml Exam Free Text/Dictation Dressing dry Incision clean, dry, and intact without redness or drainage Thigh soft 5/5 Quadriceps, Tibialis Anterior, EHL, Gastroc, Soleus, Peroneals Normal sensation Palpable DT/PT, CR <2 sec No distal edema Results Result Diagram: 06/02/16 0449 05/31/16 0430 EVELIO CHAVEZ PA-C Jun 01, 2016 11:41
--- NOTE | 2016-06-01 12:46 | CONS ---
Date/Time of Note Date/Time of Note DATE: 06/01/16 TIME: 12:45 Assessment/Plan Assessment/Plan Chief Complaint/Hosp Course Post op day 2 R TKA, doing well Problems: Additional Assessment/Plan R TKA - post op day 2 - pain control with opioids, steroids, NSAIDs - passing flatus and BMs - bowel regimen - PT/OT - management per ortho - repeat CBC in AM to trend post op anemia, mild; encourage po iron intake - on daily dose; no role for transfusion -Paroxysmal atrial fibrillation - NSR on exam; no reports of palpitations - continue on Xarelto 20mg po qday - continue carvedilol - continue spironolactone -HL - Zetia -Acquired hypothyroidism - levothyroxine -Depression - Celexa -DVT ppx - Xarelto -Dispo - per ortho; stable for DC from IM perspective when okay with primary service Please call [phone] (cell phone) with any medical issues today or tomorrow Cont'd Hospitalization Reason: Post op Consultation Date/Type/Reason Admit Date/Time May 30, 2016 at 05:46 Initial Consult Date 05/31 Type of Consultation: Medical Reason for Consultation Atrial fibrillation Referring Provider: PREET URIOSTEGUI MD 24 HR Interval Summary Free Text/Dictation Doing well. Went for a walk today. Pain about 3/10 and managed with pain meds. Hoping to be able to go home tomorrow. No cp or SOB. No palpitations. No f/c. Had BM today. Constitutional: improved, no complaints Detailed Summary Respiratory: no complaints Cardiovascular: no complaints Gastrointestinal: flatus, no complaints, passing stool Exam/Review of Systems Vital Signs Vitals Vital Signs Date Time Temp Pulse Resp B/P Pulse Ox O2 Delivery O2 Flow Rate FiO2 06/01/16 07:44 98.2 66 18 138/59 94 05/31/16 05:21 Nasal Cannula Intake and Output 05/31/16 05/31/16 06/01/16 15:00 23:00 07:00 Intake Total 700 ml 1340 ml 700 ml Balance 700 ml 1340 ml 700 ml Exam Constitutional: alert, oriented Head: atraumatic, normocephalic Eyes: EOMI, nl sclera ENMT: mucosa pink and moist, nl lips & teeth Respiratory: clear to auscultation Cardiovascular: nl pulses, regular rate and rhythm Gastrointestinal: non-tender, soft Extremities: normal pulses, other (dressing c/d/i) Neurological: nl mental status, nl speech, nl strength Results Result Diagram: 06/01/16 0420 05/31/16 0430 Results 24 hrs Laboratory Tests Test 05/31/16 17:44 05/31/16 20:57 06/01/16 04:20 06/01/16 08:24 Bedside Glucose 112 114 89 Basophils # 0.0 Basophils % 0.2 Eosinophils # 0.0 Eosinophils % 0.1 Hematocrit 34.1 L Hemoglobin 11.6 L Lymphocytes # 2.2 Lymphocytes % 25.4 Mean Corpuscular Hemoglobin 32.4 Mean Corpuscular Hemoglobin Concent 34.2 Mean Corpuscular Volume 94.8 Mean Platelet Volume 7.6 Monocytes # 0.8 Monocytes % 9.1 Neutrophils # 5.6 Neutrophils % 65.2 Nucleated Red Blood Cells # 0.0 Nucleated Red Blood Cells % 0.0 Platelet Count 199 Red Blood Count 3.60 L Red Cell Distribution Width 13.8 White Blood Count 8.5 Test 06/01/16 12:30 Bedside Glucose 124 Medications Medications Current Medications Oxycodone HCl (Roxicodone) 20 mg Q3H PRN PO PAIN LEVEL 8-10; Start 05/31/16 at 09:00 Oxycodone HCl (Roxicodone) 10 mg Q3H PRN PO PAIN LEVEL 4-7; Start 05/31/16 at 09:00 Oxycodone HCl (Roxicodone) 5 mg Q3H PRN PO PAIN LEVEL 1-3; Start 05/31/16 at 09 :00 Zolpidem Tartrate (Ambien) 5 mg HS PRN PO INSOMNIA; Start 05/30/16 at 12:00 Miscellaneous Information (Note) NOTE XX ; Start 05/30/16 at 12:00 Celecoxib (Celebrex) 200 mg BID PO Last administered on 06/01/16 08:25; Admin Dose 200 MG; Start 05/31/16 at 09:00 Dexamethasone (Decadron) 4 mg DAILY@07 IV Last administered on 06/01/16 06:41 ; Admin Dose 4 MG; Start 05/31/16 at 07:00; Stop 06/03/16 at 06:59 Pantoprazole (Protonix Tab) 40 mg DAILY@06 PO Last administered on 06/01/16 06 :41; Admin Dose 40 MG; Start 06/01/16 at 06:00 Docusate Sodium/ Ferrous Fumarate (Twyla-Sequels) 1 tab BID PO Last administered on 06/01/16 08:26; Admin Dose 1 TAB; Start 05/31/16 at 09:00 Docusate Sodium (Colace) 200 mg BID PO ; Start 05/31/16 at 09:00; Stop 06/03/16 at 08:59 Simethicone (Mylicon) 80 mg TID PRN PO DISTENSION/GAS/BLOATING; Start 05/30/16 at 12:00 Senna/Docusate Sodium (Senokot-S) 2 tab BID PRN PO CONSTIPATION; Start at 12:00 Magnesium Hydroxide (Milk Of Mag) 30 ml HS PRN PO CONSTIPATION; Start 05/30/16 at 12:00 Bisacodyl (Dulcolax Supp) 10 mg DAILY PRN [place] CONSTIPATION; Start 05/30/16 at 12 :00 Sodium Biphosphate/ Sodium Phosphate (Fleet Enema) 133 ml DAILY PRN [place] CONSTIPATION; Start 05/30/16 at 12:00 Diphenhydramine HCl (Benadryl) 25 mg Q4H PRN IM ITCHING OR RASH; Start at 12:00 Ketorolac Tromethamine (Toradol) 30 mg DAILY@06 PRN INJ ADMINSTER BY SURGEON ONLY; Start 05/31/16 at 06:00; Stop 06/04/16 at 05:59 Bupivacaine HCl/ Epinephrine Bitart (Marcaine 0.25%/ Epi (Sdv) 30 ml) 20 ml DAILY@06 PRN INJ ADMINSTER BY SURGEON ONLY; Start 05/31/16 at 06:00; Stop 06/04 at 05:59 Naloxone HCl (Narcan) 0.2 mg Q2M PRN IV DECREASED REPIRATORY RATE; Start at 12:00 Carvedilol (Coreg) 12.5 mg DAILY PO Last administered on 06/01/16 08:26; Admin Dose 12.5 MG; Start 05/31/16 at 09:00 EZETIMIBE (Zetia) 10 mg DAILY PO Last administered on 06/01/16 08:26; Admin Dose 10 MG; Start 05/31/16 at 09:00 Gabapentin (Neurontin) 100 mg TID PO Last administered on 06/01/16 12:30; Admin Dose 100 MG; Start 05/30/16 at 21:00 Montelukast Sodium (Singulair) 10 mg QHS PO Last administered on 05/31/16 20: 54; Admin Dose 10 MG; Start 05/30/16 at 21:00 Cholecalciferol (Vitamin D) 2,000 unit DAILY PO Last administered on 06/01/16 08:26; Admin Dose 2,000 UNIT; Start 05/31/16 at 09:00 Citalopram Hydrobromide (Celexa) 10 mg DAILY PO Last administered on 06/01/16 08:26; Admin Dose 10 MG; Start 05/31/16 at 09:00 Diagnostic Test (Pha) 1 ea 1 ea 02 XX ; Start 05/31/16 at 02:00 Sodium Chloride (1/2 NS) 1,000 ml @ 80 mls/hr [id number] IV Last administered on 05/31/16 08:38; Admin Dose 80 MLS/HR; Start 05/30/16 at 17:00 Miscellaneous Information 1 ea NOTE XX ; Start 05/30/16 at 16:30 Glucose (Glutose) 15 gm Q15M PRN PO DECREASED GLUCOSE; Start 05/30/16 at 16:30 Glucose (Glutose) 22.5 gm Q15M PRN PO DECREASED GLUCOSE; Start 05/30/16 at 16: 30 Dextrose (D50w Syringe) 25 ml Q15M PRN IV DECREASED GLUCOSE; Start 05/30/16 at 16:30 Dextrose (D50w Syringe) 50 ml Q15M PRN IV DECREASED GLUCOSE; Start 05/30/16 at 16:30 Glucagon (Glucagen) 1 mg Q15M PRN IM DECREASED GLUCOSE; Start 05/30/16 at 16:30 Glucose (Glutose) 15 gm Q15M PRN BUCCAL DECREASED GLUCOSE; Start 05/30/16 at 16 :30 Spironolactone (Aldactone) 25 mg DAILY PO Last administered on 06/01/16 08:26 ; Admin Dose 25 MG; Start 05/31/16 at 11:30 GARLAND MCKEON Jun 01, 2016 12:46
[2016-06-01] MEDS ORDERED: RIVAROXABAN 20 MG TABLET PO SCH (17:55)
[2016-06-01 20:23] VITALS: BP 131/76; RESP 20
[2016-06-01] MEDS: MONTELUKAST 10 MG TAB PO SCH (21:09)
[2016-06-02] MEDS: ACCUCHECK XX SCH (02:00)
[2016-06-02 05:51] LABS: BASOPHILS % 0.3 % (0.0-2.0); EOSINOPHILS % 0.2 % (0.0-7.0); HEMATOCRIT 32.6 % (37.0-47.0); HEMOGLOBIN 11.2 g/dl (12.0-16.0); LYMPHOCYTES # 2.3 10^3/ul (0.8-2.9); LYMPHOCYTES % 25.4 % (15.0-51.0); MEAN CORPUSCULAR HEMOGLOBIN 32.4 pg (29.0-33.0); MEAN CORPUSCULAR HGB CONC 34.3 g/dl (32.0-37.0); MEAN CORPUSCULAR VOLUME 94.6 fl (82.0-101.0); MEAN PLATELET VOLUME 7.7 fl (7.4-10.4); MONOCYTE # 0.9 10^3/ul (0.3-0.9); MONOCYTES % 9.8 % (0.0-11.0); NEUTROPHIL # 5.7 10^3/ul (1.6-7.5); NEUTROPHILS % 64.3 % (39.0-77.0); PLATELET COUNT 193 10^3/UL (140-440); RED BLOOD COUNT 3.45 10^6/ul (4.20-5.40); RED CELL DISTRIBUTION WIDTH 13.9 % (11.5-14.5); UNCORRECTED WBC 8.9 10^3/ul (4.8-10.8); WHITE BLOOD COUNT 8.9 10^3/ul (4.8-10.8)
[2016-06-02 06:00] LABS: CONDITION 1
[2016-06-02] MEDS: LEVOTHYROXINE 25 MCG TAB PO SCH (06:19)
[2016-06-02] MEDS: DEXAMETHASONE 4 MG/ML 1 ML INJ IV SCH (06:19)
[2016-06-02] MEDS: PANTOPRAZOLE (EC) 40 MG TAB PO SCH (06:19)
[2016-06-02] MEDS: SOD CHLORIDE 0.45% 1,000 ML IV SCH (07:30)
[2016-06-02] MEDS: INSULIN ASPART [NOVOLOG] 3 ML PEN SC SCH (07:50)
[2016-06-02 08:21] VITALS: BP 148/66; PULSE 85; RESP 18
[2016-06-02] MEDS: SPIRONOLACTONE 25 MG TAB PO SCH (08:25)
[2016-06-02] MEDS: EZETIMIBE 10 MG TAB PO SCH (08:26)
[2016-06-02] MEDS: GABAPENTIN 100 MG CAP PO SCH (08:26)
[2016-06-02] MEDS: CELECOXIB 200 MG CAP PO SCH (08:26)
[2016-06-02 08:27] VITALS: BP 122/64; RESP 20
[2016-06-02] MEDS: CHOLECALCIFEROL 1,000 UNIT TAB PO SCH (08:27)
[2016-06-02] MEDS: CITALOPRAM 20 MG TAB PO SCH (08:27)
[2016-06-02] MEDS: FERROUS FUMARATE (SR) TAB PO SCH (08:28)
[2016-06-02] MEDS: DOCUSATE SODIUM 100 MG CAP PO SCH (08:28)
--- NOTE | 2016-06-02 10:13 | PN ---
Date/Time of Note Date/Time of Note DATE: 06/02/16 TIME: 10:12 Assessment/Plan Lines/Catheters IV Catheter Type (from Nrsg): Saline Lock Far[place] in Place (from Nrsg): Yes Assessment/Plan Assessment/Plan Stable POD #3, s/p right TKA -pain cocktail given -pain meds as needed -Xarelto/SCDs for DVT prophylaxis -OOB with PT -dressing changed today -Will plan to discharge home today -follow up in the office with Dr. Gooden as planned. Subjective 24 Hr Interval Summary Doing well. No acute overnight events. Denies significant pain. Progressing well with PT. Will plan to discharge home today. Exam/Review of Systems Vital Signs Vitals Vital Signs Date Time Temp Pulse Resp B/P Pulse Ox O2 Delivery O2 Flow Rate FiO2 06/02/16 08:27 97.8 82 20 122/64 97 06/02/16 08:21 Room Air Intake and Output 06/01/16 06/01/16 06/02/16 15:00 23:00 07:00 Intake Total 1000 ml 700 ml Output Total 800 ml Balance 200 ml 700 ml Exam Free Text/Dictation Dressing dry Incision clean, dry, and intact without redness or drainage Thigh soft 5/5 Quadriceps, Tibialis Anterior, EHL, Gastroc, Soleus, Peroneals Normal sensation Palpable DT/PT, CR <2 sec No distal edema Results Result Diagram: 06/02/16 0449 05/31/16 0430 EVELIO CHAVEZ PA-C Jun 02, 2016 10:13
--- NOTE | 2016-06-02 11:14 | CONS ---
Date/Time of Note Date/Time of Note DATE: 06/02/16 TIME: 11:12 Assessment/Plan Assessment/Plan Chief Complaint/Hosp Course Post op day 2 R TKA, doing well Problems: Additional Assessment/Plan -Osteoarthritis - s/p R TKA - doing well, Xarelto for DVT ppx, was on previously for hx a-fib - bowel regimen - dc'd by Ortho - follow up Ortho - PT/OT as outpatient -Hx a-fib - in NSR - continue home regimen Cont'd Hospitalization Reason: dc today Consultation Date/Type/Reason Admit Date/Time May 30, 2016 at 05:46 Initial Consult Date 05/31 Type of Consultation: Medical Reason for Consultation Atrial fibrillation history, medical comanagement Referring Provider: PREET URIOSTEGUI MD 24 HR Interval Summary Free Text/Dictation Doing well, pain controlled, no cp or SOB, no f/c, no n/v, tolerating po, flatus and BMs; seen by orthopedics and eager to go home Constitutional: improved, no complaints Exam/Review of Systems Vital Signs Vitals Vital Signs Date Time Temp Pulse Resp B/P Pulse Ox O2 Delivery O2 Flow Rate FiO2 06/02/16 08:27 97.8 82 20 122/64 97 06/02/16 08:21 Room Air Intake and Output 06/01/16 06/01/16 06/02/16 15:00 23:00 07:00 Intake Total 1000 ml 700 ml Output Total 800 ml Balance 200 ml 700 ml Exam Constitutional: alert, oriented, well developed Respiratory: clear to auscultation, normal air movement Cardiovascular: regular rate and rhythm Gastrointestinal: non-tender, soft Extremities: other (dressing c/d/i at surgical site) Results Result Diagram: 06/02/16 0449 05/31/16 0430 Results 24 hrs Laboratory Tests Test 06/01/16 12:30 06/01/16 17:14 06/01/16 21:11 06/02/16 04:49 Bedside Glucose 124 111 99 Basophils # 0.0 Basophils % 0.3 Eosinophils # 0.0 Eosinophils % 0.2 Hematocrit 32.6 L Hemoglobin 11.2 L Lymphocytes # 2.3 Lymphocytes % 25.4 Mean Corpuscular Hemoglobin 32.4 Mean Corpuscular Hemoglobin Concent 34.3 Mean Corpuscular Volume 94.6 Mean Platelet Volume 7.7 Monocytes # 0.9 Monocytes % 9.8 Neutrophils # 5.7 Neutrophils % 64.3 Nucleated Red Blood Cells # 0.0 Nucleated Red Blood Cells % 0.0 Platelet Count 193 Red Blood Count 3.45 L Red Cell Distribution Width 13.9 White Blood Count 8.9 Test 06/02/16 08:24 Bedside Glucose 101 Medications Medications Current Medications Oxycodone HCl (Roxicodone) 20 mg Q3H PRN PO PAIN LEVEL 8-10; Start 05/31/16 at 09:00 Oxycodone HCl (Roxicodone) 10 mg Q3H PRN PO PAIN LEVEL 4-7; Start 05/31/16 at 09:00 Oxycodone HCl (Roxicodone) 5 mg Q3H PRN PO PAIN LEVEL 1-3; Start 05/31/16 at 09 :00 Zolpidem Tartrate (Ambien) 5 mg HS PRN PO INSOMNIA; Start 05/30/16 at 12:00 Miscellaneous Information (Note) NOTE XX ; Start 05/30/16 at 12:00 Celecoxib (Celebrex) 200 mg BID PO Last administered on 06/02/16 08:26; Admin Dose 200 MG; Start 05/31/16 at 09:00 Dexamethasone (Decadron) 4 mg DAILY@07 IV Last administered on 06/02/16 06:19 ; Admin Dose 4 MG; Start 05/31/16 at 07:00; Stop 06/03/16 at 06:59 Pantoprazole (Protonix Tab) 40 mg DAILY@06 PO Last administered on 06/02/16 06 :19; Admin Dose 40 MG; Start 06/01/16 at 06:00 Docusate Sodium/ Ferrous Fumarate (Twyla-Sequels) 1 tab BID PO Last administered on 06/02/16 08:28; Admin Dose 1 TAB; Start 05/31/16 at 09:00 Docusate Sodium (Colace) 200 mg BID PO ; Start 05/31/16 at 09:00; Stop 06/03/16 at 08:59 Simethicone (Mylicon) 80 mg TID PRN PO DISTENSION/GAS/BLOATING; Start 05/30/16 at 12:00 Senna/Docusate Sodium (Senokot-S) 2 tab BID PRN PO CONSTIPATION; Start at 12:00 Magnesium Hydroxide (Milk Of Mag) 30 ml HS PRN PO CONSTIPATION; Start 05/30/16 at 12:00 Bisacodyl (Dulcolax Supp) 10 mg DAILY PRN [place] CONSTIPATION; Start 05/30/16 at 12 :00 Sodium Biphosphate/ Sodium Phosphate (Fleet Enema) 133 ml DAILY PRN [place] CONSTIPATION; Start 05/30/16 at 12:00 Diphenhydramine HCl (Benadryl) 25 mg Q4H PRN IM ITCHING OR RASH; Start at 12:00 Ketorolac Tromethamine (Toradol) 30 mg DAILY@06 PRN INJ ADMINSTER BY SURGEON ONLY; Start 05/31/16 at 06:00; Stop 06/04/16 at 05:59 Bupivacaine HCl/ Epinephrine Bitart (Marcaine 0.25%/ Epi (Sdv) 30 ml) 20 ml DAILY@06 PRN INJ ADMINSTER BY SURGEON ONLY; Start 05/31/16 at 06:00; Stop 06/04 at 05:59 Naloxone HCl (Narcan) 0.2 mg Q2M PRN IV DECREASED REPIRATORY RATE; Start at 12:00 Carvedilol (Coreg) 12.5 mg DAILY PO Last administered on 06/02/16 08:28; Admin Dose 12.5 MG; Start 05/31/16 at 09:00 EZETIMIBE (Zetia) 10 mg DAILY PO Last administered on 06/02/16 08:26; Admin Dose 10 MG; Start 05/31/16 at 09:00 Gabapentin (Neurontin) 100 mg TID PO Last administered on 06/02/16 08:26; Admin Dose 100 MG; Start 05/30/16 at 21:00 Montelukast Sodium (Singulair) 10 mg QHS PO Last administered on 06/01/16 21: 09; Admin Dose 10 MG; Start 05/30/16 at 21:00 Cholecalciferol (Vitamin D) 2,000 unit DAILY PO Last administered on 06/02/16 08:27; Admin Dose 2,000 UNIT; Start 05/31/16 at 09:00 Citalopram Hydrobromide (Celexa) 10 mg DAILY PO Last administered on 06/02/16 08:27; Admin Dose 10 MG; Start 05/31/16 at 09:00 Diagnostic Test (Pha) 1 ea 1 ea 02 XX ; Start 05/31/16 at 02:00 Sodium Chloride (1/2 NS) 1,000 ml @ 80 mls/hr [id number] IV Last administered on 05/31/16 08:38; Admin Dose 80 MLS/HR; Start 05/30/16 at 17:00 Miscellaneous Information 1 ea NOTE XX ; Start 05/30/16 at 16:30 Glucose (Glutose) 15 gm Q15M PRN PO DECREASED GLUCOSE; Start 05/30/16 at 16:30 Glucose (Glutose) 22.5 gm Q15M PRN PO DECREASED GLUCOSE; Start 05/30/16 at 16: 30 Dextrose (D50w Syringe) 25 ml Q15M PRN IV DECREASED GLUCOSE; Start 05/30/16 at 16:30 Dextrose (D50w Syringe) 50 ml Q15M PRN IV DECREASED GLUCOSE; Start 05/30/16 at 16:30 Glucagon (Glucagen) 1 mg Q15M PRN IM DECREASED GLUCOSE; Start 05/30/16 at 16:30 Glucose (Glutose) 15 gm Q15M PRN BUCCAL DECREASED GLUCOSE; Start 05/30/16 at 16 :30 Spironolactone (Aldactone) 25 mg DAILY PO Last administered on 06/02/16 08:25 ; Admin Dose 25 MG; Start 05/31/16 at 11:30 GARLAND MCEKON Jun 02, 2016 11:14
--- NOTE | 2016-06-03 11:00 | DS ---
Date/Time of Note Date/Time of Note DATE: 06/03/16 TIME: 10:55 Discharge Summary Admission/Discharge Info Admit Date/Time May 30, 2016 at 05:46 Discharge Date/Time Jun 02, 2016 at 12:10 Final Diagnosis Status Post Right Total Knee Replacement Patient Condition: Stable Hospital Course On the day of admission, the patient underwent right total knee replacement Intraoperative complications: None Postoperative complications: None The patient was given prophylactic antibiotics and anticoagulants. On the day of surgery and first postoperative day patient was started on gait training and was taught usual restrictions following right total knee replacement Suction drain removed on the first postoperative day and the dressings were changed. The wound was found to be clean and healing well. There was no sign of infection. Pain cocktail given. On the second postoperative day, patient continued with inpatient PT. Dressings were changed. Wound was found to be clean and healing well. No signs of infection. Pain cocktail given. On the day of discharge, the wound was clean and healing well; there was no sign of infection. The dressings were changed. Additional Tegaderm was provided for patient with instructions on how to use while showering to keep wound dry. Discharge Temperature: 97.8 Discharge White Blood Cell Count: 8.9 Discharge Hemoglobin: 11.2 The patient was discharged home with home health provided by [facility] . The patient will be seen in office at scheduled postoperative evaluation date given on their preoperative exam. Should patient complain of any problems prior to scheduled postoperative evaluation date, they may call into outpatient clinic to determine if they need to be scheduled at sooner appointment to be seen immediately if needed. Discharge medications: As per medication reconciliation form Diet: Same as preadmission diet. This is Tabby Bell PA-C dictating discharge summary for Dr. Sandro Gooden. Home Meds Reported Medications [Lidocaine Patch] No Conflict Check, 1 PATCH DAILY 05/30/16 Cholecalciferol (Vitamin D3) (Vitamin D-3) 2,000 Unit Tablet, 2000 UNIT PO DAILY , TAB 05/30/16 Ezetimibe* (Zetia*) 10 Mg Tablet, 10 MG PO DAILY, TAB 05/30/16 Gabapentin* (Gabapentin*) 100 Mg Capsule, 100 MG PO TID, #90 CAP 05/30/16 Montelukast Sodium* (Singulair*) 10 Mg Tablet, 10 MG PO QHS, #30 TAB 05/30/16 Montelukast Sodium* (Montelukast Sodium*) 10 Mg Tablet, 10 MG PO QHS, #30 TAB 05/30/16 Spironolactone* (Aldactone*) 50 Mg Tablet, 50 MG PO DAILY, #30 TAB 05/30/16 Tramadol HCl (Tramadol HCl) 50 Mg Tablet, 50 MG PO DAILY, #60 TAB 05/30/16 Rivaroxaban* (Xarelto*) 20 Mg Tablet, 20 MG PO WITH DINNER, TAB 05/30/16 Levothyroxine Sodium* (Synthroid*) 25 Mcg Tablet, 25 MCG PO BEFORE BREAKFAST, # 30 TAB 05/30/16 Metformin Hcl (Metformin Hcl ER) 500 Mg Tab.er.24, 500 MG PO DAILY, #30 TAB.SA 05/30/16 [Chun Hernandez] No Conflict Check 05/30/16 Carvedilol* (Carvedilol*) 12.5 Mg Tablet, 12.5 MG PO DAILY, #60 TAB 05/30/16 Citalopram Hydrobromide (CITALOPRAM HBR) 20 Mg/10 Ml Solution, 10 MG PO DAILY, # 300 ML 05/30/16 Follow-up Plan follow up at scheduled post op visit provided at her preop exam. Pending Labs Laboratory Tests Test 06/02/16 15:31 Lab Scanned Report REFERENCE [id number] TABBY EARLY PA-C Jun 03, 2016 11:00
== END 2016-06-02 12:10 | disposition home health service (06) | DRG 470 ==
LOC: REC 05:46 → EDSTATUS 07:00 → MS1 16:45
PROC: 0SRC0J9 Replacement of Right Knee Joint with Synthetic Substitute, Cemented, Open Approach (ICD-10-PCS; principal; 2016-05-30 07:30)
DX: M17.11 Unilateral primary osteoarthritis, right knee (principal); I48.0 Paroxysmal atrial fibrillation; I10 Essential (primary) hypertension; E03.9 Hypothyroidism, unspecified; E11.9 Type 2 diabetes mellitus without complications; E78.5 Hyperlipidemia, unspecified; F32.9 Major depressive disorder, single episode, unspecified
CPT/HCPCS: 73560; 73562; 80053; 81001; 81003; 82962; 85025; 86850; 86900; 86901; 86920; 87081; 87086; 88304; 88311; 97110; 97116; 97163; 97530; J1940; C1776; J0131; J0330; J0690; J0735; J1100; J1885; J2250; J2274; J2405; J2710; J2795; J3010; J3370; J7120

== ENCOUNTER → 2016-06-20 | Outpatient (CLI) | payer MEDICARE, OTHER ==
--- NOTE | 2016-06-20 14:57 | PN ---
Date/Time of Note Date/Time of Note DATE: 06/20/16 TIME: 14:51 Outpatient Progress Note Chief Complaint Status post right total knee replacement performed on 05/30/2016 HPI 70-year-old female presents today for three-week postoperative visit status post right total knee replacement on 05/30/2016. Patient states that pain is well controlled. She does however, experience pain complaints of a 5/10 that occurs a couple of times during the week usually in the afternoon after patient has been performing physical activity. Patient is now walking around [employer] [place] close to 1 mile a day. Denies any falls or difficulty with walking. Patient is very pleased status post surgery. Continues taking Xarelto for DVT prophylaxis. Denies any calf pain, shortness of breath or chest pain/ tightness. Patient continues with physical therapy about 3 times a week in which she states is helping improve her functionality. Review of Systems Const: No Fever, no chills, no Wt. loss, no Fatigue, normal appetite, no diaphoresis. Physical Exam Blood pressure is 124/68, temperature is 98.5, pulse is 75, respiratory rate is 12, height is 5 foot 6 inches, weight 196 pounds General Appearance: well-developed, well-nourished, in no acute distress. Right Knee: Slight limp with knock-knee appearance from the left lower extremity. Walking independently without assistive ambulatory device. 0-110 with flexion/extension. 0-120 with passive range of motion. Surgical wound is healing well with no signs of infection. No tenderness to palpation. Normal sensory examination to light touch from the right lower extremity. Negative Homans sign. 4+/5 strength on resistance with flexion and extension. Allergies Coded Allergies: No Known Allergy (Unverified , 05/30/16) Assessment/Plan * Continue DVT prophylaxis * Continue physical therapy * Pain medications as needed especially prior to initiating physical therapy * Patient will follow-up at 6 weeks postop for repeat evaluation as well as x- rays. Patient was also seen by Dr. Gooden who agrees with plan. Medications Home Meds Reported Medications [Lidocaine Patch] No Conflict Check, 1 PATCH DAILY 05/30/16 Cholecalciferol (Vitamin D3) (Vitamin D-3) 2,000 Unit Tablet, 2000 UNIT PO DAILY , TAB 05/30/16 Ezetimibe* (Zetia*) 10 Mg Tablet, 10 MG PO DAILY, TAB 2/16/17 Gabapentin* (Gabapentin*) 100 Mg Capsule, 100 MG PO TID, #90 CAP 05/30/16 Montelukast Sodium* (Singulair*) 10 Mg Tablet, 10 MG PO QHS, #30 TAB 05/30/16 Montelukast Sodium* (Montelukast Sodium*) 10 Mg Tablet, 10 MG PO QHS, #30 TAB 05/30/16 Spironolactone* (Aldactone*) 50 Mg Tablet, 50 MG PO DAILY, #30 TAB 05/30/16 Tramadol HCl (Tramadol HCl) 50 Mg Tablet, 50 MG PO DAILY, #60 TAB 05/30/16 Rivaroxaban* (Xarelto*) 20 Mg Tablet, 20 MG PO WITH DINNER, TAB 05/30/16 Levothyroxine Sodium* (Synthroid*) 25 Mcg Tablet, 25 MCG PO BEFORE BREAKFAST, # 30 TAB 05/30/16 Metformin Hcl (Metformin Hcl ER) 500 Mg Tab.er.24, 500 MG PO DAILY, #30 TAB.SA 05/30/16 [Chun Hernandez] No Conflict Check 05/30/16 Carvedilol* (Carvedilol*) 12.5 Mg Tablet, 12.5 MG PO DAILY, #60 TAB 05/30/16 Citalopram Hydrobromide (CITALOPRAM HBR) 20 Mg/10 Ml Solution, 10 MG PO DAILY, # 300 ML 05/30/16 TABBY EARLY PA-C Jun 20, 2016 14:56
== END | disposition home or self-care (01) ==
LOC: HKI 13:52
DX: Z47.1 Aftercare following joint replacement surgery (principal); Z96.651 Presence of right artificial knee joint

== ENCOUNTER → 2016-07-11 | Outpatient (CLI) | payer MEDICARE, OTHER ==
--- NOTE | 2016-07-11 14:30 | PN ---
Date/Time of Note Date/Time of Note DATE: 07/11/16 TIME: 14:20 Outpatient Progress Note Chief Complaint 6 week follow-up status post right total knee replacement on 05/30/2016 HPI 71-year-old female presents today for 6 week follow-up status post right total knee arthroplasty on 05/30/2016. Patient continues to be very pleased status post surgery as she denies any pain complaints to the right knee. Patient is walking over 1 mile a day. She does state that on occasion, she experiences discomfort/pain of 4-5/10 at night after a day of activity. May occur anytime from 2-3 times per week. Denies any falls. Denies any calf pain. Denies any complications with surgical wound is a continues to heal well. Patient's major complaint is the left knee as she has developed slight limp secondary to discomfort to the left knee. Denies any falls of the left knee. History of osteoarthritis in the left knee as well. Review of Systems Const: No Fever, no chills, no Fatigue, normal appetite, no diaphoresis. Resp: No SOB, no wheezing, no chest pain. CV: No chest pain, no palpitaions, no KENNEY. Physical Exam Blood pressure is 122/59, temperature 98.3, pulse 82, respiratory rate 12, height 5 foot 6 inches, weight 196 pounds General Appearance: well-developed, well-nourished, in no acute distress. Right knee: Gait to the right knee is normal and nonantalgic. Patient has a range of motion of 0-130 with extension/flexion. No pain with range of motion. 5/5 strength on resistance. Normal sensory examination to light touch. Surgical wound is healing well. No calf pain/negative Homans sign. Left knee: Near full range of motion to the left knee. Pain with range of motion. Mild tenderness to palpation to the left knee. Crepitus is noted with flexion/extension. 5/5 strength on resistance. Imaging: X-ray of the right knee performed on 07/11/2016 showing all components appearing well aligned, attached and integrated to the bone. No signs of any lucency between metal and bone. Allergies Coded Allergies: No Known Allergy (Unverified , 05/30/16) Assessment/Plan -Patient progressing well -Surgical wound continues to heal well. -No signs of infection or DVT on exam. -X-rays showing no abnormalities in regards to prosthesis attachment to bone. -Range of motion is improved status post total knee replacement. -Patient may continue with Xarelto as she was taking this previously. -Antibiotic prophylaxis card provided today. -Follow-up 6 months status post surgery. If patient is doing well at that time , possible follow-up on as-needed basis from that point. Dental prophylaxis discussed in detail today. Patient given prophylaxis card with antibiotic options. Should patient have allergy to specific medication ( eg penicillin) alternative options are also provided on the card. Patient is aware that antibiotics should be taken prior to any procedures to prevent increased risk of infection to the joint. Patient is aware that this will be for the rest of their life. Patient states understanding and compliance. Cortisone injection to the left knee performed today. Area was sterilized with Betadine prior to injection. 2 cc of 40 mg Kenalog with 6 cc lidocaine injected to the knee with the superior medial region using 25-gauge needle. Patient observed for 5-10 minutes. Procedure went well with no complications. Patient discharged after. Patient has been seen with Dr. Gooden who agrees with plan. Medications Home Meds Reported Medications [Lidocaine Patch] No Conflict Check, 1 PATCH DAILY 05/30/16 Cholecalciferol (Vitamin D3) (Vitamin D-3) 2,000 Unit Tablet, 2000 UNIT PO DAILY , TAB 05/30/16 Ezetimibe* (Zetia*) 10 Mg Tablet, 10 MG PO DAILY, TAB 05/30/16 Gabapentin* (Gabapentin*) 100 Mg Capsule, 100 MG PO TID, #90 CAP 05/30/16 Montelukast Sodium* (Singulair*) 10 Mg Tablet, 10 MG PO QHS, #30 TAB 05/30/16 Montelukast Sodium* (Montelukast Sodium*) 10 Mg Tablet, 10 MG PO QHS, #30 TAB 05/30/16 Spironolactone* (Aldactone*) 50 Mg Tablet, 50 MG PO DAILY, #30 TAB 05/30/16 Tramadol HCl (Tramadol HCl) 50 Mg Tablet, 50 MG PO DAILY, #60 TAB 05/30/16 Rivaroxaban* (Xarelto*) 20 Mg Tablet, 20 MG PO WITH DINNER, TAB 05/30/16 Levothyroxine Sodium* (Synthroid*) 25 Mcg Tablet, 25 MCG PO BEFORE BREAKFAST, # 30 TAB 05/30/16 Metformin Hcl (Metformin Hcl ER) 500 Mg Tab.er.24, 500 MG PO DAILY, #30 TAB.SA 05/30/16 [Chun Hernandez] No Conflict Check 05/30/16 Carvedilol* (Carvedilol*) 12.5 Mg Tablet, 12.5 MG PO DAILY, #60 TAB 05/30/16 Citalopram Hydrobromide (CITALOPRAM HBR) 20 Mg/10 Ml Solution, 10 MG PO DAILY, # 300 ML 05/30/16 TABBY EARLY PA-C Jul 11, 2016 14:30
--- NOTE | 2016-07-11 18:47 | RADRPT ---
PROCEDURE: Right knee radiographs. CLINICAL INDICATION: Right knee pain. Postop. TECHNIQUE: Three views. Weight bearing. Frontal, lateral, and patellar view. COMPARISON: 05/30/2016. FINDINGS: There is no fracture or dislocation. Anterior skin parul and surgical drains have been removed. There is a total right knee constrained arthroplasty which appears satisfactory. There is no lytic or blastic lesion. There is no joint effusion. IMPRESSION: 1. Satisfactory postoperative appearance of the right knee. RPTAT: QQ .Rush Rodriguez MD, MD Date Time Electronically viewed and signed by .Rush Rodriguez MD, MD on 07/11/2016 18:46 .R/
== END | disposition home or self-care (01) ==
LOC: HKI 13:35
DX: Z47.1 Aftercare following joint replacement surgery (principal); M25.562 Pain in left knee; Z96.651 Presence of right artificial knee joint

== ENCOUNTER → 2018-01-12 | Outpatient (CLI) | END | disposition home or self-care (01) ==